=== PATIENT | male | born 1950 | race Caucasian/White ===

== ENCOUNTER 2016-11-01 07:25 | Inpatient (IN) ==
--- NOTE | 2016-10-26 13:05 | EKG Report ---
Stationary ECG Study [facility] Test Date: 10/26/2016 1:07:05 PM Pat Name: JESSICA LAUGHLIN Department: Room: Gender: M Talent Development Coordinator: PELON 11-01-16 SARAI : 1950 Requested by: Jomar Palafox Order Number: [id number] Reading MD: KELLEY TRAORE Intervals [place] Rate: 65 P: 56 NM: 169 QRS: 74 QRSD: 94 T: 11 QT: 398 QTc: 409 Interpretive Statements SINUS RHYTHM WITH OCCASIONAL SUPRAVENTRICULAR PREMATURE COMPLEXES VOLTAGE CRITERIA FOR LVH NONSPECIFIC T-WAVE ABNORMALITY Electronically Signed On 10-26-16 17:11:28 CDT by KELLEY TRAORE [email or web address]
[2016-10-26 14:06] LABS: Basophils # 0.1 10*3/uL (0.0-0.2); Basophils % 0.7 % (0.0-0.8); Eosinophils # 0.3 10*3/uL (0.0-0.87); Eosinophils % 4.3 % (0.00-10.9); Hematocrit 40.3 VOL% (42.0-52.0); Hemoglobin 13.7 GM/DL (14.0-18.0); Immature Granulocytes % 0.3 %; Immature Granulocytes Absolute 0.02 #; Lymphocytes # 1.7 10*3/uL (1.4-4.0); Lymphocytes % 24.5 % (21.2-54.2); Mean Corpuscular Hemoglobin 31 PG (27-34); Mean Corpuscular Volume 91.2 FL (87-102); Monocytes # 0.7 10*3/uL (0.11-0.8); Monocytes % 10.3 % (1.7-12.7); Neutrophils % 59.9 % (38.7-73.9); Platelet Count 230 T/CUMM (130-400); Red Blood Count 4.42 MC/CUMM (3.8-5.5); Red Cell Distribution Width 13.7 % (9.3-17.3); White Blood Count 6.7 T/CUMM (4-12)
[2016-10-26 14:17] LABS: Partial Thromboplastin Time 24.3 SECS (0-40)
[2016-10-26 14:27] LABS: Apearance,Urine CLEAR (Clear); Bilirubin,Urine Negative (Negative); Blood, Urine Negative (Negative); Glucose,Urine (UA) Negative (Negative); Ketones,Urine Negative (Negative); Mucus,Urine Occasional /LPF (Occasional); Nitrite,Urine Negative (Negative); Protein,Urine Negative; RBC,Urine <1 /HPF (0-4); Urine Color Yellow (Yellow); Urine Specific Gravity 1.023 (1.001-1.035); Urine Urobilinogen < 2.0 EU/DL (0.2-1.0); WBC,Urine 1 /HPF (0-6)
[2016-10-26 14:37] LABS: Albumin 4.1 G/DL (3.4-5.0); Bilirubin,Total 0.4 MG/DL (0.2-1.0); Calcium 9.1 MG/DL (8.5-10.1); Osmolality,Calculated 285.1 MOS/KG (273-304); Potassium 4.5 MMOL/L (3.5-5.1); Total Protein 6.7 G/DL (6.4-8.3)
--- NOTE | 2016-10-26 16:05 | XRay Report ---
Exam: XR chest 2V Date: 10/26/2016 12:53 PM Indication: Respiratory preop evaluation of the chest. Comparison: None Technical: PA lateral Findings: Cardiomegaly is present. Previous rotator cuff surgery on the right with cortical anchor screws and previous surgical screws present over the glenoid. Lateral marginal osteophytes are present. No obvious consolidating infiltrates or effusions with some granuloma changes and reticular nodular densities. Impression: 1. Cardiomegaly without decompensation 2. Underlying granuloma changes 3. Previous bilateral shoulder surgery PROCEDURE INTERPRETED AT [facility] DEPARTMENT OF RADIOLOGY Final Report Signed by: Dr. Nasir Story
[~2016-11-01 07:25] MED LIST: VANCOMYCIN INJ 1,000 MG in SODIUM CHLORIDE 0.9% 250 ML IV ONE
[2016-11-01] MEDS ORDERED: VANCOMYCIN 1,000 MG VIAL ONE (07:59)
[2016-11-01] MEDS ORDERED: ceFAZolin 1,000 MG VIAL ONE (08:00)
[2016-11-01] MEDS ORDERED: SODIUM CHLORIDE 0.9% 100 ML IV ONE (08:00)
--- NOTE | 2016-11-01 08:41 | History and Physical Update ---
History and Physical Update - History and Physical H&P was reviewed, the patient examined and there: are no changes in the patients condition since last H&P was completed. - Physical Exam Mental Status: alert and oriented Heart: regular rate and rhythm Lung: clear to auscultation
[2016-11-01] MEDS ORDERED: BACITRACIN OINT 0.9 GM PACK TOP ONE (10:25)
[2016-11-01] MEDS ORDERED: FAMOTIDINE 20 MG TABLET PO ONE (10:37)
[2016-11-01] MEDS ORDERED: DIAZEPAM 5 MG TABLET PO ONE (10:37)
[2016-11-01] MEDS ORDERED: DIAZEPAM 5 MG TABLET ONE (10:43)
[2016-11-01] MEDS ORDERED: FAMOTIDINE 20 MG TABLET ONE (10:43)
[2016-11-01] MEDS ORDERED: LACTATED RINGERS 1,000 ML IV SCH ×2 (11:00→13:30)
[2016-11-01] MEDS ORDERED: oxyCODONE IR 5 MG TABLET PO PRN (11:38)
[2016-11-01] MEDS ORDERED: diphenhydrAMINE CAP 25 MG CAPSULE PO PRN (11:38)
[2016-11-01] MEDS ORDERED: ONDANSETRON 4 MG/2 ML VIAL IV PRN ×2 (11:38→13:23)
[2016-11-01] MEDS ORDERED: MORPHINE 2 MG/1 ML SYRINGE IV PRN ×2 (11:38)
[2016-11-01] MEDS ORDERED: ZALEPLON 5 MG CAPSULE PO PRN (11:38)
[2016-11-01] MEDS ORDERED: TRANEXAMIC ACID 1,000 MG/10 ML VIAL IV ONE (12:02)
[2016-11-01] MEDS ORDERED: ROPIVACAINE 0.5% 30 ML VIAL ONE (12:10)
[2016-11-01] MEDS ORDERED: HYDROmorphone 2 MG/1 ML VIAL IV PRN (13:23)
[2016-11-01] MEDS ORDERED: PROPOFOL 200 MG/20 ML VIAL IV ONE (13:29)
[2016-11-01] MEDS ORDERED: SEVOFLURANE 1 UNIT/15 MINUTE INH ONE (13:30)
[2016-11-01] MEDS ORDERED: fentaNYL 100 MCG/2 ML VIAL ONE (13:30)
[2016-11-01] MEDS ORDERED: MIDAZOLAM 2 MG/2 ML VIAL ONE (13:30)
[2016-11-01] MEDS ORDERED: ePHEDrine 50 MG/ML AMP ONE (13:31)
[2016-11-01] MEDS ORDERED: GLYCOPYRROLATE 0.4 MG/2 ML VIAL ONE (13:33)
[2016-11-01] MEDS ORDERED: NEOSTIGMINE 10 MG/10 ML VIAL ONE (13:34)
[2016-11-01] MEDS ORDERED: ACETAMINOPHEN 1,000 MG/100 ML VIAL IV ONE (13:34)
[2016-11-01] MEDS ORDERED: ROCURONIUM 100 MG/10 ML VIAL IV ONE (13:36)
[2016-11-01] MEDS ORDERED: KETOROLAC 30 MG/1 ML VIAL ONE (13:37)
--- NOTE | 2016-11-01 13:45 | XRay Report ---
Left knee, 2 views History is postop left knee replacement Patient is status post left knee replacement with resulting gross anatomic alignment Overlying soft tissue faye are present. Impression: Status post left knee replacement PROCEDURE INTERPRETED AT [facility] DEPARTMENT OF RADIOLOGY Final Report Signed by: Dr. Dee Dee Lacey
--- NOTE | 2016-11-01 14:06 | Anesthesia Post-Op ---
Anesthesia Post OP - Post Ansesthetic Evaluation Patient seen in post op: Yes Resp: within normal limits CV: within normal limits Mental: within normal limits Temp: within normal limits Tbyp-Up-Fpxvmvoqg: within normal limits Nausea and Vomiting: within normal limits Pain: within normal limits
--- NOTE | 2016-11-01 14:16 | Operative Note ---
Date of procedure: 11/01/16 Procedure: DIAGNOSIS: Left knee primary osteoarthrosis PROCEDURE: Left total knee arthroplasty (cpt #59166) SURGEON: Veronica ANESTHESIA: Spinal converted to general with a postoperative adductor canal block PROCEDURE and FINDINGS: After adequate was induced, the patient's knee was prepped and draped in the usual sterile fashion. The limb was exsanguinated with Esmarch. Tourniquet was inflated to 300 mmHg. A median parapatellar approach was made. Femur was cut using an intramedullary guide and a 4 in 1 cutting jig in 5 degrees of valgus. ACL and menisci were excised. Tibia was cut using intramedullary guide. Patella was cut using freehand technique. Components were trialed. Tibial fin was prepared. Components are cemented in place using Palacos cement and modern cementing techniques. Cement was removed. A 1/8 inch Hemovac drain was placed. The knee was well-balanced and full range of motion with central tracking patella. Deep layers closed with 0-0 Vicryl. Superficial layers were closed with 2-0 and 3-0 Vicryl. Skin was approximated with faye. Bacitracin and a sterile dressing was applied. Patient was transferred to recovery. A postoperative adductor canal block is anticipated. COMPONENTS: The Cristiane Persona system was used. 10 CR standard femur, G natural tibia, 10 mm liner, 35 mm patella TOURNIQUET TIME: 35 minutes Surgeon / Physician: Jomar Martin Jr. Results - Labs CBC & BMP: 10/26/16 14:00 10/26/16 14:00 Discharge Plan - Discharge Medications No Action Tamsulosin [Flomax] 0.4 mg PO DAILY Meloxicam 15 mg PO DAILY dilTIAZem HCl [Cardizem LA] 120 mg PO DAILY Oxycodone HCl/Acetaminophen [Oxycodone-Acetaminophen 10-325] 1 each PO DAILY - Follow Up or Referral - Forms/Instructions
[2016-11-01] MEDS: ACETAMINOPHEN 500 MG TABLET PO SCH ×2 (15:09→21:40)
[2016-11-01] MEDS: LACTATED RINGERS 1,000 ML IV SCH ×2 (15:10→21:57)
[2016-11-01] MEDS: ceFAZolin 2,000 MG in PREMIX 1 EACH IV SCH (15:10)
--- NOTE | 2016-11-01 15:45 | Orthopedic Progress Note ---
Orthopedics - Subjective Interval history: Comfortable. He has just worked with physical therapy. Dressing clean, dry and intact. Left lower extremities neurovascularly unchanged. Plan: Mobilize per protocol. Exam - Constitutional Vitals: Period Temp Pulse Resp BP Sys/Mejia Pulse Ox Last 24 Hr 97.2 F-98.3 F 59-75 14-25 113-147/63-90 95-100 Results - Labs CBC & BMP: 10/26/16 14:00 10/26/16 14:00
[2016-11-01] MEDS: KETOROLAC 30 MG/1 ML VIAL IV SCH ×2 (18:28→18:33)
[2016-11-01] MEDS: DOCUSATE SODIUM 100 MG CAPSULE PO SCH (21:40)
[2016-11-02] MEDS: KETOROLAC 30 MG/1 ML VIAL IV SCH ×2 (00:15→06:40)
[2016-11-02] MEDS: ceFAZolin 2,000 MG in PREMIX 1 EACH IV SCH (00:16)
[2016-11-02] MEDS: ACETAMINOPHEN 500 MG TABLET PO SCH ×2 (04:17→09:23)
[2016-11-02] MEDS: FONDAPARINUX 2.5 MG/0.5 ML SYRINGE SUBCUT SCH (06:39)
[2016-11-02 07:28] LABS: Basophils % 0.3 % (0.0-0.8); Eosinophils # 0.1 10*3/uL (0.0-0.87); Eosinophils % 1.3 % (0.00-10.9); Hematocrit 37.9 VOL% (42.0-52.0); Hemoglobin 12.8 GM/DL (14.0-18.0); Immature Granulocytes % 0.3 %; Immature Granulocytes Absolute 0.03 #; Lymphocytes # 1.1 10*3/uL (1.4-4.0); Lymphocytes % 10.4 % (21.2-54.2); Mean Corpuscular HGB Conc 33.8 GM/DL (32-36); Mean Corpuscular Hemoglobin 31 PG (27-34); Mean Corpuscular Volume 90.9 FL (87-102); Monocytes # 1.1 10*3/uL (0.11-0.8); Monocytes % 10.5 % (1.7-12.7); Neutrophils # 7.9 10*3/uL (1.4-7.4); Neutrophils % 77.2 % (38.7-73.9); Platelet Count 209 T/CUMM (130-400); Red Blood Count 4.17 MC/CUMM (3.8-5.5); Red Cell Distribution Width 14.3 % (9.3-17.3); White Blood Count 10.2 T/CUMM (4-12)
[2016-11-02 07:58] LABS: Calcium 8.3 MG/DL (8.5-10.1); Osmolality,Calculated 275.7 MOS/KG (273-304); Potassium 4.3 MMOL/L (3.5-5.1)
[2016-11-02] MEDS: DILTIAZEM CD 120 MG CAPSULE PO SCH (09:22)
[2016-11-02] MEDS: DOCUSATE SODIUM 100 MG CAPSULE PO SCH ×2 (09:22→20:24)
[2016-11-02] MEDS: TAMSULOSIN 0.4 MG CAPSULE PO SCH (09:23)
[2016-11-02] MEDS ORDERED: ACETAMINOPHEN 325 MG TABLET PO PRN (11:39)
--- NOTE | 2016-11-02 12:27 | Pathology Report from [facility] ---
[facility] ACCESSION # : [id number] PATIENT NAME : Gayle Laughlin ORDERING DR : CRUZ MOON MD CLINICAL HX: Left knee osteoarthritis POST-OP DX: Same SPECIMEN INFO: Left knee bone and tissue GROSS DESCRIPTION: Received in formalin labeled GAYLE LAUGHLIN is an aggregate of bone, cartilage and tissue measuring 14.7 x 15.4 cm. The articular surfaces are focally degenerative with large areas of subchondral eburnation noted measuring up to 4 cm. [employer] tissue is submitted in one cassette. DIAGNOSIS FOR GAYLE LAUGHLIN: LEFT KNEE BONE & TISSUE, TOTAL REPLACEMENT: Osteoarthritis. COLLECTED DATE: 11/01/2016 [facility] REPORT DATE: 11/02/2016 ELECTRONICALLY SIGNED BY: Doc Jean M.D. 11/02/2016 - 10:41:36 [facility]
--- NOTE | 2016-11-02 16:22 | Orthopedic Progress Note ---
Orthopedics - Subjective Interval history: comfortable. has had frequent urination over night. dressing dry. nv ok. mobilize with therapy. stop ivfluids which should alleviate freqency. check ua Exam - Constitutional Vitals: Period Temp Pulse Resp BP Sys/Mejia Pulse Ox Last 24 Hr 97.7 F-98.3 F 62-91 16-20 111-149/60-77 92-97 Results - Labs CBC & BMP: 11/02/16 07:14 11/02/16 07:14
[2016-11-02] MEDS: oxyCODONE IR 5 MG TABLET PO PRN ×2 (16:24→20:34)
[2016-11-02 16:31] LABS: Apearance,Urine CLEAR (Clear); Bilirubin,Urine Negative (Negative); Blood, Urine Negative (Negative); Glucose,Urine (UA) Negative (Negative); Ketones,Urine Negative (Negative); Mucus,Urine Occasional /LPF (Occasional); Nitrite,Urine Negative (Negative); Protein,Urine Negative; Urine Color Yellow (Yellow); Urine Urobilinogen < 2.0 EU/DL (0.2-1.0); WBC,Urine 1 /HPF (0-6)
[2016-11-02] MEDS: CELECOXIB 200 MG CAPSULE PO SCH (17:38)
[2016-11-03] MEDS: oxyCODONE IR 5 MG TABLET PO PRN ×4 (01:15→20:30)
[2016-11-03 03:17] LABS: Basophils % 0.3 % (0.0-0.8); Eosinophils # 0.2 10*3/uL (0.0-0.87); Eosinophils % 1.6 % (0.00-10.9); Hematocrit 35.7 VOL% (42.0-52.0); Immature Granulocytes % 0.6 %; Immature Granulocytes Absolute 0.07 #; Lymphocytes # 1.3 10*3/uL (1.4-4.0); Lymphocytes % 11.7 % (21.2-54.2); Mean Corpuscular HGB Conc 33.6 GM/DL (32-36); Mean Corpuscular Hemoglobin 31 PG (27-34); Mean Corpuscular Volume 91.1 FL (87-102); Mean Platelet Volume 11.3 FL (9.6-12.0); Monocytes # 1.2 10*3/uL (0.11-0.8); Monocytes % 11.1 % (1.7-12.7); Neutrophils # 8.4 10*3/uL (1.4-7.4); Neutrophils % 74.7 % (38.7-73.9); Platelet Count 196 T/CUMM (130-400); Red Blood Count 3.92 MC/CUMM (3.8-5.5); Red Cell Distribution Width 14.4 % (9.3-17.3); White Blood Count 11.2 T/CUMM (4-12)
[2016-11-03] MEDS: FONDAPARINUX 2.5 MG/0.5 ML SYRINGE SUBCUT SCH (05:25)
--- NOTE | 2016-11-03 07:24 | Orthopedic Progress Note ---
Orthopedics - Subjective Interval history: Mr Crespo is continuing to have problems with urinary retention, frequency and urgency. He was cathed last night with about a 900 cc residual. He was able to ambulate in the [place] yesterday. His dressing is clean, dry and intact. He is able to perform straight leg raise. Plan: Consult Dr. Philip León to evaluate his urinary retention. Otherwise continue with physical therapy. Exam - Constitutional Vitals: Period Temp Pulse Resp BP Sys/Mejia Pulse Ox Last 24 Hr 97.9 F-99.5 F 62-90 18-19 127-149/68-78 92-96 Results - Labs CBC & BMP: 11/03/16 02:57 11/02/16 07:14
[2016-11-03] MEDS: DILTIAZEM CD 120 MG CAPSULE PO SCH (08:39)
[2016-11-03] MEDS: DOCUSATE SODIUM 100 MG CAPSULE PO SCH ×2 (08:40→20:30)
[2016-11-03] MEDS: TAMSULOSIN 0.4 MG CAPSULE PO SCH ×3 (08:40→23:14)
[2016-11-03] MEDS: CELECOXIB 200 MG CAPSULE PO SCH (08:41)
[2016-11-03] MEDS: MAGNESIUM HYDROXIDE SUSP 30 ML UDCUP PO PRN ×2 (10:17→17:34)
--- NOTE | 2016-11-03 10:51 | Urology Consultation ---
Assessment and Plan - Time spent with patient Time spent with patient: Greater than 30 minutes (1) BPH w urinary obs/LUTS Status: Acute Assessment and plan: I will increase his Flomax to twice a day. We will intermittent cathing 3 times a day needs to ambulate. We will give him cathartics for a bowel movement. I do not know what his PSA is but we need to hold off on that for now. Current Visit: Yes History of Present Illness - Data of Consult Patient: new to practice Consult date: 11/03/16 Requesting Physician: Jomar Martin Jr. - Consult Narrative Reason for consult: BPH, urinary retention History of present illness: Mr. Crespo is a 65 year old male who is status post left knee replacement. Developed urinary retention. He has known history of BPH with lower urinary tract symptoms. He is on Flomax. But prior to his hospitalization he was still getting up every 3 hours at night. In the day before surgery he was having some frequency and not emptying. He had a Tomlinson that was in and out for surgery and then had difficulty voiding. He was catheterized last night had 900 cc residual. He is back on his Flomax. He also has not had a bowel movement in a couple of days and the says he is daily like clockwork. We need to double his Flomax dose. He had more problems preop had and he realized. We will also give him a cathartic to help with bowel movement which will help. He needs to ambulate as much as he can. We will catheterize him 3 times a day see if we can get this going. CC: Jomar Martin Jr., - Home Medications and Allergies Home Medications: Home Medications Medication Instructions Recorded Confirmed Type Meloxicam 15 mg PO DAILY 10/26/16 11/01/16 History Oxycodone HCl/Acetaminophen 1 each PO DAILY 10/26/16 11/01/16 History [Oxycodone-Acetaminophen 10-325] Tamsulosin [Flomax] 0.4 mg PO DAILY 10/26/16 11/01/16 History dilTIAZem HCl [Cardizem LA] 120 mg PO DAILY 10/26/16 11/01/16 History Allergies/Adverse Reactions: Allergies Allergy/AdvReac Type Severity Reaction Status Date / Time aspirin Allergy Severe ANAPHYLAXIS Verified 10/26/16 12:53 indomethacin [From Indocin] Allergy Severe ANAPHYLAXIS Verified 10/26/16 12:53 12 point system: reviewed and no additional remarkable complaints except as stated - Genitourinary Genitourinary: Present: difficulty urinating, nocturia (Every 3 hours), urinary frequency. Absent: dysuria, flank pain, hematuria, scrotal swelling, testicular mass, testicular pain, urinary incontinence Exam - Constitutional Vitals: Period Temp Pulse Resp BP Sys/Mejia Pulse Ox Last 24 Hr 97.9 F-99.5 F 72-90 18-19 127-149/68-83 92-96 - GI/Abdominal GI/Abdominal exam: Present: normal bowel sounds, tenderness (Suprapubic), soft. Absent: ascites, distended, firm, guarding, hyperactive bowel sounds, hypoactive bowel sounds, hernia, mass, rebound - Genitourinary Genitourinary: scrotum without lesions, cysts, edema or rash, penis with no lesions or discharge, diffusely enlarged prostate without tenderness Results - Labs CBC & BMP: 11/03/16 02:57 11/02/16 07:14 Lab Results: I have reviewed the past 24 hour labs Specialty Discharge - Follow Up or Referrals Follow up with: Jomar Martin Jr., MD [Physician] -
[2016-11-04] MEDS: FONDAPARINUX 2.5 MG/0.5 ML SYRINGE SUBCUT SCH (05:03)
[2016-11-04 05:05] LABS: Basophils % 0.2 % (0.0-0.8); Eosinophils # 0.3 10*3/uL (0.0-0.87); Eosinophils % 2.2 % (0.00-10.9); Hematocrit 34.6 VOL% (42.0-52.0); Hemoglobin 11.9 GM/DL (14.0-18.0); Immature Granulocytes % 0.6 %; Immature Granulocytes Absolute 0.07 #; Lymphocytes % 16.1 % (21.2-54.2); Mean Corpuscular HGB Conc 34.4 GM/DL (32-36); Mean Corpuscular Hemoglobin 31 PG (27-34); Mean Corpuscular Volume 91.3 FL (87-102); Mean Platelet Volume 11.6 FL (9.6-12.0); Monocytes # 1.5 10*3/uL (0.11-0.8); Monocytes % 12.4 % (1.7-12.7); Neutrophils # 8.4 10*3/uL (1.4-7.4); Neutrophils % 68.5 % (38.7-73.9); Platelet Count 213 T/CUMM (130-400); Red Blood Count 3.79 MC/CUMM (3.8-5.5); Red Cell Distribution Width 14.2 % (9.3-17.3); White Blood Count 12.3 T/CUMM (4-12)
[2016-11-04 05:24] LABS: Hypochromasia 1+; Platelet Estimate Adequate
--- NOTE | 2016-11-04 07:15 | Discharge Summary ---
Hospital Course - Hospital Course Hospital Course: Mr. Crespo was admitted after undergoing a left total knee replacement. He received perioperative DVT and antimicrobial prophylaxis. Received physical therapy. His course was complicated with urinary retention from underlying BPH.. Dr. León from urology was consulted and increased his Flomax and started him on 3 times daily in and out caths. Dressings clean, dry and intact. Left lower extremities neurovascularly unchanged. Specialty Discharge - Follow Up or Referrals Follow up with: Jomar Martin Jr., MD [Physician] - Discharge Plan - Discharge Data Discharge Diet: advance to your usual diet Hygiene: may shower Weight Bearing at Discharge: weight bear as tolerated Driving: not until seen by doctor - Discharge Medications New Tamsulosin [Flomax] 0.4 mg PO BID capsule Continue Meloxicam 15 mg PO DAILY dilTIAZem HCl [Cardizem LA] 120 mg PO DAILY Discontinued Tamsulosin [Flomax] 0.4 mg PO DAILY Oxycodone HCl/Acetaminophen [Oxycodone-Acetaminophen 10-325] 1 each PO DAILY - Follow Up or Referral Follow Up: Jomar Martin Jr., MD [Physician] - - Forms/Instructions Additional Discharge Instructions: Daily dry dressing changes. Weightbearing as tolerated. CPM for 3 weeks. Arrange walker and bedside commode for home use. Wear ANA hose for 1 month. Discontinue faye and Steri-Strip wound on November 11, 2016. Follow-up appointment in 4 weeks. Prescriptions for Percocet 10 with 30 tablets and Eliquis with 14 tablets were written. Get discharge instructions from Dr. Philip León. Take aspirin 325 mg daily for 21 days. Exam - Constitutional Vitals: Period Temp Pulse Resp BP Sys/Mejia Pulse Ox Last 24 Hr 98.1 F-99.8 F 65-90 15-20 126-163/62-91 93-98 Discharge Results Labs on day of discharge: Labs from last 24 hours 11/04/16 04:09 WBC 12.3 H RBC 3.79 L Hgb 11.9 L Hct 34.6 L MCV 91.3 MCH 31 MCHC 34.4 RDW 14.2 Plt Count 213 MPV 11.6 Neut % (Auto) 68.5 Lymph % (Auto) 16.1 L [place] % (Auto) 12.4 Eos % (Auto) 2.2 Baso % (Auto) 0.2 Neut # (Auto) 8.4 H Lymph # (Auto) 2.0 [place] # (Auto) 1.5 H Eos # (Auto) 0.3 Baso # (Auto) 0.0 Immature Gran % 0.6 Nucleated RBC % 0.0 Immature Gran # 0.07 Nucleated RBCs # 0.00 Platelet Estimate Adequate Hypochromasia 1+ Morphology Comment DS: Provider Date of admission: 11/01/16 07:25 Primary care physician: Nasir Dozier, Attending physician on admission: Jomar Martin Jr., Consults: 11/01/16 11:38 Consult to Case Mgmt/Social Srvs [CONS] Routine Reason for Case Mgmt/Social Srvs: Rehab Home Health Equipment Consult Comment: CPM Machine del to Pt in room 317 f/home rehab; 5ft 6in 196 lbs. Consult to Occupational Therapy [CONS] Routine Reason for Occupational Therapy: Evaluate and Treat Consult Comment: ADL's Consult to Physical Therapy [CONS] Routine Reason for Physical Therapy: Evaluate and Treat Gait Training Start Therapy: Today Consult Comment: wbat 11/02/16 15:16 Consult to Outpatient Therapy [CONS] Routine Reason for Outpatient Therapy: Physical Therapy Consult Comment: Pt will D/C w/HH for 2 weeks then wants OP Rehab @ [facility] OP Rehab 11/03/16 07:21 Consult to Physician [CONS] Routine Comment: retention Consulting Provider: Philip León Consulting Provider Notified: Yes When should Consulting Provider be notified: Now Person Notified: niall smith Date Notified: 11/03/16 Time Notified: 09:05 Discharging clinician: Jomar Martin Jr., Expected date of discharge: 11/04/16
[2016-11-04] MEDS: DILTIAZEM CD 120 MG CAPSULE PO SCH (09:12)
[2016-11-04] MEDS: DOCUSATE SODIUM 100 MG CAPSULE PO SCH (09:12)
[2016-11-04] MEDS: TAMSULOSIN 0.4 MG CAPSULE PO SCH (09:14)
[2016-11-04] MEDS: CELECOXIB 200 MG CAPSULE PO SCH (09:14)
--- NOTE | 2016-11-04 13:20 | Urology Progress Note ---
Assessment and Plan (1) BPH w urinary obs/LUTS Status: Acute Assessment and plan: I will increase his Flomax to twice a day. We will intermittent cathing 3 times a day needs to ambulate. We will give him cathartics for a bowel movement. I do not know what his PSA is but we need to hold off on that for now. Current Visit: Yes Urology - PN: Subj Interval history: Patient unfortunately is requiring cathing. He is voiding only about 10%. His residuals range from 6-800 cc. He is on Flomax twice a day. His is a nurse she can catheterize him. We will provide catheters. He is to go home. I will see him in 2 weeks. We will see him back with a log. I wrote a prescription for Flomax twice a day. Hopefully with time and more ambulation this will improve if not then we may have to scope him with other treatments to follow. Conference with and patient. Exam - Constitutional Vitals: Period Temp Pulse Resp BP Sys/Mejia Pulse Ox Last 24 Hr 96.9 F-99.5 F 65-90 15-20 126-163/62-91 94-98 Results - Labs CBC & BMP: 11/04/16 04:09 11/02/16 07:14 Specialty Discharge - Follow Up or Referrals Follow up with: Jomar Martin Jr., MD [Physician] - 12/06/16 8:15 am
[2016-11-04 16:22] VITALS: BP 146/70
== END 2016-11-04 15:10 | disposition home health service (06) | DRG 470 ==
LOC: N.SDSINP 07:25 → N.3E 14:26
PROVIDERS: ADMIT Orthopaedic Surgery; ATTEND Orthopaedic Surgery